=== PATIENT | male | born 1985 | race Caucasian/White ===

== ENCOUNTER 2016-08-06 17:28 | Emergency (ER) | payer BC, OTHER ==
[2016-08-06 17:45] VITALS: BP 121/79
[2016-08-06] MEDS ORDERED: Lidocaine/Epineph/Tetraca SOL* (LET solution) 4 ML BTL TOPICAL ONE (19:00)
--- NOTE | 2016-08-06 19:07 | UC ---
Skin Complaint HPI - HPI Summary HPI Summary: 31 year old male with complaints of painful swelling on the back of his head x 1 month. He thinks it started an infected hair follicle. It has been getting larger and more painful over the last several days. Denies fever or chills. Denies headache pt wanting I+D No MRSA hx - History of Current Complaint Chief Complaint: UCSkin Time Seen by Provider: 08/06/16 18:51 Stated Complaint: SKIN COMPLAINT ON HEAD Hx Obtained From: Patient Onset/Duration: Gradual Onset, Lasting Weeks - 4, Still Present Timing: Constant Onset Severity: Mild Current Severity: Mild Location: Discrete - at the back of his head low at hair line Character: Swelling, Pain, Raised, Painful Aggravating: Touch Alleviating: Nothing Associated Signs & Symptoms: Positive: Tenderness. Negative: Nausea, Numbness, Fever, Chills, Drainage, Bruising, Red Streaks - Allergy/Home Medications Allergies/Adverse Reactions: Allergies Allergy/AdvReac Type Severity Reaction Status Date / Time No Known Allergies Allergy Verified 08/06/16 17:45 Home Medications: Home Medications Aleve* 2 tab PO PRN 08/06/16 [History] Review of Systems Constitutional: Negative Skin: Other - painful swelling on the back of his head Eyes: Negative ENT: Negative Respiratory: Negative Cardiovascular: Negative Gastrointestinal: Negative Genitourinary: Negative Motor: Negative Neurovascular: Negative Musculoskeletal: Negative Neurological: Negative Psychological: Negative All Other Systems Reviewed And Are Negative: Yes PMH/Surg Hx/FS Hx/Imm Hx Previously Healthy: Yes Endocrine History Of: Denies: Thyroid Disease Cardiovascular History Of: Denies: Hypertension Respiratory History Of: Denies: Asthma - Surgical History Surgical History: None - Family History Known Family History: Negative: Hypertension, Diabetes - Social History Occupation: Employed Full-time Lives: With Family Alcohol Use: None Substance Use Type: None Smoking Status (MU): Never Smoked Tobacco - Immunization History Most Recent Influenza Vaccination: none Physical Exam Triage Information Reviewed: Yes Appearance: Well-Appearing, Well-Nourished, Pain Distress - gimace when he is palpating lump Vital Signs: Initial Vital Signs Temp 98.3 F 08/06/16 17:42 Pulse 83 08/06/16 17:42 Resp 16 08/06/16 17:42 BP 121/79 08/06/16 17:42 Pulse Ox 100 08/06/16 17:42 Vital Signs Reviewed: Yes Eyes: Positive: Conjunctiva Clear. Negative: Discharge ENT: Positive: Hearing grossly normal. Negative: Nasal congestion Neck: Positive: Supple, Nontender, No Lymphadenopathy Respiratory: Positive: Lungs clear, Normal breath sounds Cardiovascular: Positive: RRR, No Murmur Musculoskeletal: Positive: Strength Intact, ROM Intact Neurological: Positive: Alert, Muscle Tone Normal Psychological: Positive: Age Appropriate Behavior - pleasant and cooperative Skin: Positive: Other - 3x4 cm area of mild raised erythema. Area very firm at edges, fluctuant center.. Negative: rashes Course/Dx - Course Course Of Treatment: I+D of abscess - large amount of drainage. culture pending. Education on abscess and MRSA. Follow up plan established - Differential Diagnoses - Skin Complaint Differential Diagnoses: Abscess, Other - cystic acne - Diagnoses Provider Diagnoses: Abscess. I+D of abscess Procedures - Incision and Drainage Site: back of neck at hair line Anesthesia: Topical - LET Instrument(s): Scalpel - 11 blade - large amount of yellow/brown foul smelling purulent drainage from abscess Discharge - Discharge Plan Condition: Stable Disposition: HOME Prescriptions: Sulfamethox/Trimethoprim DS* [Bactrim DS 800/160 TAB*] 1 tab PO BID #[id number] tab Patient Education Materials: Abscess (ED) Referrals: Ramiro Del Real MD [Primary Care Provider] - 5 Days (for recheck of abscess)
== END 2016-08-06 20:06 | disposition home or self-care (01) ==
LOC: UCEAST 17:28
DX: L02.811 Cutaneous abscess of head [any part, except face] (principal)
CPT/HCPCS: 10060; 87070; 87076; 87205; 87640; 87641; 99212; G0463